=== PATIENT | male | born 1975 | race Caucasian/White ===

== ENCOUNTER 2023-02-23 06:15 | Emergency (ER) | payer SELFPAY ==
[2023-02-23] VITALS (15 sets, daily range): BP systolic 112–175; BP diastolic 67–89; PULSE 97–116; RESP 15–28; TEMP 36.8; O2SAT 92–98; BMI 45.0
--- NOTE | 2023-02-23 06:30 | ED.GENADULT ---
HPI - General Adult <Aleksandar Meng DO - Last Filed: 02/23/23 18:11> General Chief complaint: Shortness of Breath/Dyspnea Stated complaint: sore throat, chest congestion Time Seen by Provider: 02/23/23 06:16 Source: patient and family Mode of arrival: Ambulatory Limitations: no limitations History of Present Illness HPI narrative: Patient is a 47-year-old male. Approximately 1 month ago he spent several days in the hospital with COVID pneumonia. He felt like things were actually improving until sometime within the past 24-48 hours started to have chest congestion and shortness of breath. The stated complaint was stating that he was having a sore throat but he has not having a sore throat. He has no underlying lung condition such as COPD or asthma. He denies chest pain. No fevers. Related Data Previous Rx's Medication Instructions Recorded albuterol sulfate 2.5 mg/3 mL 2.5 mg (3 mL) inhalation Q4-6H PRN 02/23/23 (0.083 %) solution for nebulization shortness of breath or wheezing #75 mL albuterol sulfate 90 mcg/actuation 2 puff inhalation Q4-6H PRN 02/23/23 aerosol inhaler (ProAir HFA) shortness of breath or wheezing #8.5 grams nebulizer accessories #1 ea 02/23/23 nebulizer accessories #1 ea 02/23/23 nebulizer and compressor #1 ea 02/23/23 nebulizer and compressor #1 ea 02/23/23 prednisone 20 mg tablet 40 mg (2 x 20 mg) PO DAILY 5 days 02/23/23 #10 tabs Allergies Allergy/AdvReac Type Severity Reaction Status Date / Time No Known Drug Allergies Allergy Verified 02/23/23 06:41 Review of Systems <DO Vicky Griffin Last Filed: 02/23/23 18:11> Constitutional Constitutional: Reports system reviewed and no additional complaints, except as documented Cardiovascular Cardiovascular: Reports system reviewed and no additional complaints, except as documented Respiratory Respiratory: Reports system reviewed and no additional complaints, except as documented Integumentary/Breasts Skin/Breast: Reports system reviewed and no additional complaints, except as documented Patient History <DO Vicky Griffin Last Filed: 02/23/23 18:11> Social History Smoking Status: Former smoker Exam <Aleksandar Meng DO - Last Filed: 02/23/23 18:11> Initial Vital Signs Initial Vital Signs: Vital Signs Temperature 98.3 F 02/23/23 06:20 Pulse Rate 111 H 02/23/23 06:20 Respiratory Rate 26 H 02/23/23 06:20 Blood Pressure 155/89 H 02/23/23 06:20 Pulse Oximetry 92 02/23/23 06:20 Oxygen Delivery Method Room Air 02/23/23 06:20 Const General: cooperative and comfortable HENMT Head: normal to inspection and normocephalic Resp Effort & Inspection: no cough, not labored, no respiratory distress and tachypneic Auscultation: diminished lung sounds Cardio Rate: regular rate Rhythm: regular rhythm GI Inspection: normal to inspection Skin General: no rashes or lesions noted Neuro General: patient alert, patient awake, patient oriented x3 and moves all extremities Extrem General: capillary refill normal <Leigha Nunez DO - Last Filed: 02/23/23 12:35> Initial Vital Signs Initial Vital Signs: Vital Signs Temperature 98.3 F 02/23/23 06:20 Pulse Rate 111 H 02/23/23 06:20 Respiratory Rate 26 H 02/23/23 06:20 Blood Pressure 155/89 H 02/23/23 06:20 Pulse Oximetry 92 02/23/23 06:20 Oxygen Delivery Method Room Air 02/23/23 06:20 Course <Aleksandar Meng DO - Last Filed: 02/23/23 18:11> Orders Ordered: Discontinued Medications Albuterol (Albuterol 2.5 Mg/3 Ml Neb (Adult)) 5 mg INH NOW ONE Stop: 02/23/23 06:30 Last Admin: 02/23/23 06:35 Dose: 5 mg Documented By: JONATHON Albuterol (Albuterol 2.5 Mg/3 Ml Neb (Adult)) 20 mg INH NOW ONE Stop: 02/23/23 06:49 Last Admin: 02/23/23 07:21 Dose: 20 mg Documented By: MIGUEL ANGEL Albuterol (Albuterol 2.5 Mg/3 Ml Neb (Adult)) 2.5 mg INH NOW ONE Stop: 02/23/23 09:46 Last Admin: 02/23/23 09:48 Dose: 2.5 mg Documented By: RB Sodium Chloride (Normal Saline 0.9%) 1,000 mls @ 1,000 mls/hr IV BOLUS ONE Stop: 02/23/23 09:43 Last Infusion: 02/23/23 09:46 Dose: Infused Documented By: Admin: 02/23/23 08:58 Dose: 1,000 mls/hr Documented By: SPF Methylprednisolone (Methylprednisolone 125 Mg/2 Ml Vial) 125 mg IV NOW ONE Stop: 02/23/23 07:29 Last Admin: 02/23/23 07:55 Dose: 125 mg Documented By: JORGE Vital Signs Vital signs: Vital Signs - 8 hr 02/23/23 06:20 02/23/23 06:26 02/23/23 06:30 Temperature 98.3 F Pulse Rate 111 H 113 H 112 H Respiratory Rate 26 H 26 H Blood Pressure 155/89 H Pulse Oximetry 92 93 95 Oxygen Delivery Method Room Air Room Air Room Air Oxygen Flow Rate Fraction of Inspired Oxygen 02/23/23 06:30 02/23/23 06:35 02/23/23 07:00 Temperature Pulse Rate 97 H 110 H Respiratory Rate 28 H Blood Pressure 175/83 H Pulse Oximetry 98 92 Oxygen Delivery Method Room Air Oxygen Flow Rate 0 Fraction of Inspired Oxygen 21 02/23/23 07:01 02/23/23 07:01 02/23/23 07:25 Temperature Pulse Rate 110 H Respiratory Rate Blood Pressure 153/74 H Pulse Oximetry 92 93 Oxygen Delivery Method Room Air Oxygen Flow Rate Fraction of Inspired Oxygen 02/23/23 07:25 02/23/23 07:30 02/23/23 08:00 Temperature Pulse Rate 112 H 110 H 111 H Respiratory Rate 20 Blood Pressure Pulse Oximetry 94 94 Oxygen Delivery Method Oxygen Flow Rate Fraction of Inspired Oxygen 02/23/23 08:30 02/23/23 08:57 02/23/23 08:57 Temperature Pulse Rate 116 H 114 H Respiratory Rate 20 21 Blood Pressure 112/83 Pulse Oximetry 94 96 Oxygen Delivery Method Oxygen Flow Rate Fraction of Inspired Oxygen 02/23/23 09:00 02/23/23 09:01 02/23/23 09:01 Temperature Pulse Rate 116 H 114 H Respiratory Rate 15 17 Blood Pressure 156/76 H Pulse Oximetry 96 95 Oxygen Delivery Method Oxygen Flow Rate Fraction of Inspired Oxygen 02/23/23 09:16 02/23/23 09:16 02/23/23 09:30 Temperature Pulse Rate 109 H 108 H Respiratory Rate 15 15 Blood Pressure 157/67 H Pulse Oximetry 94 92 Oxygen Delivery Method Oxygen Flow Rate Fraction of Inspired Oxygen 02/23/23 09:30 Temperature Pulse Rate Respiratory Rate Blood Pressure 154/70 H Pulse Oximetry Oxygen Delivery Method Oxygen Flow Rate Fraction of Inspired Oxygen <Leigha Nunez, - Last Filed: 02/23/23 12:35> Orders Ordered: Discontinued Medications Albuterol (Albuterol 2.5 Mg/3 Ml Neb (Adult)) 5 mg INH NOW ONE Stop: 02/23/23 06:30 Last Admin: 02/23/23 06:35 Dose: 5 mg Documented By: JONATHON Albuterol (Albuterol 2.5 Mg/3 Ml Neb (Adult)) 20 mg INH NOW ONE Stop: 02/23/23 06:49 Last Admin: 02/23/23 07:21 Dose: 20 mg Documented By: MIGUEL ANGEL Albuterol (Albuterol 2.5 Mg/3 Ml Neb (Adult)) 2.5 mg INH NOW ONE Stop: 02/23/23 09:46 Last Admin: 02/23/23 09:48 Dose: 2.5 mg Documented By: RB Sodium Chloride (Normal Saline 0.9%) 1,000 mls @ 1,000 mls/hr IV BOLUS ONE Stop: 02/23/23 09:43 Last Infusion: 02/23/23 09:46 Dose: Infused Documented By: Admin: 02/23/23 08:58 Dose: 1,000 mls/hr Documented By: SPF Methylprednisolone (Methylprednisolone 125 Mg/2 Ml Vial) 125 mg IV NOW ONE Stop: 02/23/23 07:29 Last Admin: 02/23/23 07:55 Dose: 125 mg Documented By: SPF Vital Signs Vital signs: Vital Signs - 8 hr 02/23/23 06:20 02/23/23 06:26 02/23/23 06:30 Temperature 98.3 F Pulse Rate 111 H 113 H 112 H Respiratory Rate 26 H 26 H Blood Pressure 155/89 H Pulse Oximetry 92 93 95 Oxygen Delivery Method Room Air Room Air Room Air Oxygen Flow Rate Fraction of Inspired Oxygen 02/23/23 06:30 02/23/23 06:35 02/23/23 07:00 Temperature Pulse Rate 97 H 110 H Respiratory Rate 28 H Blood Pressure 175/83 H Pulse Oximetry 98 92 Oxygen Delivery Method Room Air Oxygen Flow Rate 0 Fraction of Inspired Oxygen 21 02/23/23 07:01 02/23/23 07:01 02/23/23 07:25 Temperature Pulse Rate 110 H Respiratory Rate Blood Pressure 153/74 H Pulse Oximetry 92 93 Oxygen Delivery Method Room Air Oxygen Flow Rate Fraction of Inspired Oxygen 02/23/23 07:25 02/23/23 07:30 02/23/23 08:00 Temperature Pulse Rate 112 H 110 H 111 H Respiratory Rate 20 Blood Pressure Pulse Oximetry 94 94 Oxygen Delivery Method Oxygen Flow Rate Fraction of Inspired Oxygen 02/23/23 08:30 02/23/23 08:57 02/23/23 08:57 Temperature Pulse Rate 116 H 114 H Respiratory Rate 20 21 Blood Pressure 112/83 Pulse Oximetry 94 96 Oxygen Delivery Method Oxygen Flow Rate Fraction of Inspired Oxygen 02/23/23 09:00 02/23/23 09:01 02/23/23 09:01 Temperature Pulse Rate 116 H 114 H Respiratory Rate 15 17 Blood Pressure 156/76 H Pulse Oximetry 96 95 Oxygen Delivery Method Oxygen Flow Rate Fraction of Inspired Oxygen 02/23/23 09:16 02/23/23 09:16 02/23/23 09:30 Temperature Pulse Rate 109 H 108 H Respiratory Rate 15 15 Blood Pressure 157/67 H Pulse Oximetry 94 92 Oxygen Delivery Method Oxygen Flow Rate Fraction of Inspired Oxygen 02/23/23 09:30 Temperature Pulse Rate Respiratory Rate Blood Pressure 154/70 H Pulse Oximetry Oxygen Delivery Method Oxygen Flow Rate Fraction of Inspired Oxygen Medical Decision Making <Aleksandar Meng DO - Last Filed: 02/23/23 18:11> Medical Records Medical records reviewed: Yes I reviewed the patient's medical records. Lab Data 02/23/23 07:55 02/23/23 07:55 Labs: Lab Results 02/23/23 02/23/23 02/23/23 Range/Units 06:30 06:30 06:30 WBC (4.5-11.0) X10^3/uL RBC (4.5-5.9) X10^6/uL Hgb (13.5-17.5) g/dL Hct (41-53) % MCV (80-100) fL MCH (26-34) PG MCHC (30-36) % RDW (11.6-14.8) % Plt Count (150-400) X10^3/uL Neut % (Auto) (50-75) % Lymph % (Auto) (25-40) % [place] % (Auto) (3-14) % Eos % (Auto) (2-4) % Baso % (Auto) (0-2) % Neut # (Auto) (6048-6131) /uL Lymph # (Auto) (4882-8524) /uL [place] # (Auto) (0-900) /uL Eos # (Auto) (0-450) /uL Baso # (Auto) (0-100) /uL PT (9.4-12.5) SECONDS INR (0.9-1.3) D-Dimer (<500) ng/ml Sodium (137-145) mmol/L Potassium (3.4-5.1) mmol/L Chloride (98-107) mmol/L Carbon Dioxide (22-32) mmol/L BUN (9-20) mg/dL Creatinine (0.66-1.25) mg/dL Estimated GFR (>60) mL/min BUN/Creatinine Ratio (6-22) Glucose (70-100) mg/dL Lactate (0.7-2.1) mmol/L Calcium (8.4-10.2) mg/dL Total Bilirubin (0.2-1.3) mg/dL AST (17-59) IU/L ALT (<50) IU/L Alkaline Phosphatase (38-126) U/L Troponin I (0.01-0.034) ng/mL NT-Pro-B Natriuret Pep (<125) pg/mL Total Protein (6.3-8.2) g/dL Albumin (3.5-5.0) g/dL Globulin (1.7-4.1) g/dL Albumin/Globulin Ratio (1.0-2.8) Chlamy pneumoniae PCR Not detected (Not Detect) Adenovirus (PCR) Not detected (Not Detect) B.parapertussis DNA PCR Not detected (Not Detecte) Coronavirus OC43 (PCR) Not detected (Not Detect) Coronavirus HKU1 (PCR) Not detected (Not Detect) Coronavirus 229E (PCR) Not detected (Not Detect) SARS-CoV-2 (PCR) Negative Not detected (Negative) Coronavirus NL63 (PCR) Not detected (Not Detect) Human Metapneumovir PCR Not detected (Not Detect) Influenza A (RT-PCR) Flu a negative (NEGATIVE) Influenza Type A (PCR) Not detected (Not Detect) Influenza B (RT-PCR) Flu b negative (NEGATIVE) Influenza Type B (PCR) Not detected (Not Detect) M. pneumoniae (PCR) Not detected (Not Detect) Parainfluenza 1 (PCR) Not detected (Not Detect) Parainfluenza 2 (PCR) Not detected (Not Detect) Parainfluenza 3 (PCR) Not detected (Not Detect) Parainfluenza 4 (PCR) Not detected (Not Detect) RSV (PCR) Negative Not detected (Negative) Entero/Rhino (PCR) Not detected (Not Detect) 02/23/23 Range/Units 07:55 WBC 8.5 (4.5-11.0) X10^3/uL RBC 4.99 (4.5-5.9) X10^6/uL Hgb 15.3 (13.5-17.5) g/dL Hct 44.4 (41-53) % MCV 89.0 (80-100) fL MCH 30.8 (26-34) PG MCHC 34.6 (30-36) % RDW 12.3 (11.6-14.8) % Plt Count 250 (150-400) X10^3/uL Neut % (Auto) 67.6 (50-75) % Lymph % (Auto) 23.1 L (25-40) % [place] % (Auto) 8.1 (3-14) % Eos % (Auto) 0.6 L (2-4) % Baso % (Auto) 0.6 (0-2) % Neut # (Auto) 5700 (0380-0600) /uL Lymph # (Auto) 2000 (7784-9025) /uL [place] # (Auto) 700 (0-900) /uL Eos # (Auto) 100 (0-450) /uL Baso # (Auto) 0 (0-100) /uL PT 12.9 H (9.4-12.5) SECONDS INR 1.1 (0.9-1.3) D-Dimer 993 H (<500) ng/ml Sodium 136 L (137-145) mmol/L Potassium 4.4 (3.4-5.1) mmol/L Chloride 97 L (98-107) mmol/L Carbon Dioxide 32 (22-32) mmol/L BUN 12 (9-20) mg/dL Creatinine 0.51 L (0.66-1.25) mg/dL Estimated GFR > 60 (>60) mL/min BUN/Creatinine Ratio 23.5 H (6-22) Glucose 225 H (70-100) mg/dL Lactate 1.0 (0.7-2.1) mmol/L Calcium 9.1 (8.4-10.2) mg/dL Total Bilirubin 0.8 (0.2-1.3) mg/dL AST 30 (17-59) IU/L ALT 37 (<50) IU/L Alkaline Phosphatase 138 H (38-126) U/L Troponin I < 0.012 (0.01-0.034) ng/mL NT-Pro-B Natriuret Pep 125 H (<125) pg/mL Total Protein 7.6 (6.3-8.2) g/dL Albumin 3.9 (3.5-5.0) g/dL Globulin 3.7 (1.7-4.1) g/dL Albumin/Globulin Ratio 1.1 (1.0-2.8) Chlamy pneumoniae PCR (Not Detect) Adenovirus (PCR) (Not Detect) B.parapertussis DNA PCR (Not Detecte) Coronavirus OC43 (PCR) (Not Detect) Coronavirus HKU1 (PCR) (Not Detect) Coronavirus 229E (PCR) (Not Detect) SARS-CoV-2 (PCR) (Negative) Coronavirus NL63 (PCR) (Not Detect) Human Metapneumovir PCR (Not Detect) Influenza A (RT-PCR) (NEGATIVE) Influenza Type A (PCR) (Not Detect) Influenza B (RT-PCR) (NEGATIVE) Influenza Type B (PCR) (Not Detect) M. pneumoniae (PCR) (Not Detect) Parainfluenza 1 (PCR) (Not Detect) Parainfluenza 2 (PCR) (Not Detect) Parainfluenza 3 (PCR) (Not Detect) Parainfluenza 4 (PCR) (Not Detect) RSV (PCR) (Negative) Entero/Rhino (PCR) (Not Detect) MDM Narrative Medical decision making narrative: Was able to review the records from his previous outside hospital visit. He was admitted to the hospital for respiratory failure with hypoxia which most likely was related to COVID. He was also found to be hyperglycemic with a glucose greater than 520. Had an echocardiogram during that time which was relatively unremarkable. Had CT scans of his chest that were relatively unremarkable. Patient arrives today with decreased breath sounds bilaterally, tachypnea and tachycardia. He is afebrile. Has diminished breath sounds bilaterally. Tested again for COVID/flu/RSV. Nebulizer treatments ordered to evaluate for improvement. Some improvement after his 1st nebulizer treatment. Now starting to hear some wheezing. Still diminished bilaterally. Will continue with a continuous treatment. Care turned today provider to follow-up and disposition. <Leigha Nunez, DO - Last Filed: 02/23/23 12:35> Lab Data Labs: Lab Results 02/23/23 02/23/23 02/23/23 Range/Units 06:30 06:30 06:30 WBC (4.5-11.0) X10^3/uL RBC (4.5-5.9) X10^6/uL Hgb (13.5-17.5) g/dL Hct (41-53) % MCV (80-100) fL MCH (26-34) PG MCHC (30-36) % RDW (11.6-14.8) % Plt Count (150-400) X10^3/uL Neut % (Auto) (50-75) % Lymph % (Auto) (25-40) % [place] % (Auto) (3-14) % Eos % (Auto) (2-4) % Baso % (Auto) (0-2) % Neut # (Auto) (8739-2948) /uL Lymph # (Auto) (0610-1713) /uL [place] # (Auto) (0-900) /uL Eos # (Auto) (0-450) /uL Baso # (Auto) (0-100) /uL PT (9.4-12.5) SECONDS INR (0.9-1.3) D-Dimer (<500) ng/ml Sodium (137-145) mmol/L Potassium (3.4-5.1) mmol/L Chloride (98-107) mmol/L Carbon Dioxide (22-32) mmol/L BUN (9-20) mg/dL Creatinine (0.66-1.25) mg/dL Estimated GFR (>60) mL/min BUN/Creatinine Ratio (6-22) Glucose (70-100) mg/dL Lactate (0.7-2.1) mmol/L Calcium (8.4-10.2) mg/dL Total Bilirubin (0.2-1.3) mg/dL AST (17-59) IU/L ALT (<50) IU/L Alkaline Phosphatase (38-126) U/L Troponin I (0.01-0.034) ng/mL NT-Pro-B Natriuret Pep (<125) pg/mL Total Protein (6.3-8.2) g/dL Albumin (3.5-5.0) g/dL Globulin (1.7-4.1) g/dL Albumin/Globulin Ratio (1.0-2.8) Chlamy pneumoniae PCR Not detected (Not Detect) Adenovirus (PCR) Not detected (Not Detect) B.parapertussis DNA PCR Not detected (Not Detecte) Coronavirus OC43 (PCR) Not detected (Not Detect) Coronavirus HKU1 (PCR) Not detected (Not Detect) Coronavirus 229E (PCR) Not detected (Not Detect) SARS-CoV-2 (PCR) Negative Not detected (Negative) Coronavirus NL63 (PCR) Not detected (Not Detect) Human Metapneumovir PCR Not detected (Not Detect) Influenza A (RT-PCR) Flu a negative (NEGATIVE) Influenza Type A (PCR) Not detected (Not Detect) Influenza B (RT-PCR) Flu b negative (NEGATIVE) Influenza Type B (PCR) Not detected (Not Detect) M. pneumoniae (PCR) Not detected (Not Detect) Parainfluenza 1 (PCR) Not detected (Not Detect) Parainfluenza 2 (PCR) Not detected (Not Detect) Parainfluenza 3 (PCR) Not detected (Not Detect) Parainfluenza 4 (PCR) Not detected (Not Detect) RSV (PCR) Negative Not detected (Negative) Entero/Rhino (PCR) Not detected (Not Detect) 02/23/23 Range/Units 07:55 WBC 8.5 (4.5-11.0) X10^3/uL RBC 4.99 (4.5-5.9) X10^6/uL Hgb 15.3 (13.5-17.5) g/dL Hct 44.4 (41-53) % MCV 89.0 (80-100) fL MCH 30.8 (26-34) PG MCHC 34.6 (30-36) % RDW 12.3 (11.6-14.8) % Plt Count 250 (150-400) X10^3/uL Neut % (Auto) 67.6 (50-75) % Lymph % (Auto) 23.1 L (25-40) % [place] % (Auto) 8.1 (3-14) % Eos % (Auto) 0.6 L (2-4) % Baso % (Auto) 0.6 (0-2) % Neut # (Auto) 5700 (5958-6770) /uL Lymph # (Auto) 2000 (1796-1209) /uL [place] # (Auto) 700 (0-900) /uL Eos # (Auto) 100 (0-450) /uL Baso # (Auto) 0 (0-100) /uL PT 12.9 H (9.4-12.5) SECONDS INR 1.1 (0.9-1.3) D-Dimer 993 H (<500) ng/ml Sodium 136 L (137-145) mmol/L Potassium 4.4 (3.4-5.1) mmol/L Chloride 97 L (98-107) mmol/L Carbon Dioxide 32 (22-32) mmol/L BUN 12 (9-20) mg/dL Creatinine 0.51 L (0.66-1.25) mg/dL Estimated GFR > 60 (>60) mL/min BUN/Creatinine Ratio 23.5 H (6-22) Glucose 225 H (70-100) mg/dL Lactate 1.0 (0.7-2.1) mmol/L Calcium 9.1 (8.4-10.2) mg/dL Total Bilirubin 0.8 (0.2-1.3) mg/dL AST 30 (17-59) IU/L ALT 37 (<50) IU/L Alkaline Phosphatase 138 H (38-126) U/L Troponin I < 0.012 (0.01-0.034) ng/mL NT-Pro-B Natriuret Pep 125 H (<125) pg/mL Total Protein 7.6 (6.3-8.2) g/dL Albumin 3.9 (3.5-5.0) g/dL Globulin 3.7 (1.7-4.1) g/dL Albumin/Globulin Ratio 1.1 (1.0-2.8) Chlamy pneumoniae PCR (Not Detect) Adenovirus (PCR) (Not Detect) B.parapertussis DNA PCR (Not Detecte) Coronavirus OC43 (PCR) (Not Detect) Coronavirus HKU1 (PCR) (Not Detect) Coronavirus 229E (PCR) (Not Detect) SARS-CoV-2 (PCR) (Negative) Coronavirus NL63 (PCR) (Not Detect) Human Metapneumovir PCR (Not Detect) Influenza A (RT-PCR) (NEGATIVE) Influenza Type A (PCR) (Not Detect) Influenza B (RT-PCR) (NEGATIVE) Influenza Type B (PCR) (Not Detect) M. pneumoniae (PCR) (Not Detect) Parainfluenza 1 (PCR) (Not Detect) Parainfluenza 2 (PCR) (Not Detect) Parainfluenza 3 (PCR) (Not Detect) Parainfluenza 4 (PCR) (Not Detect) RSV (PCR) (Negative) Entero/Rhino (PCR) (Not Detect) Imaging Data Chest x-ray: Radiologist's Impression: Close Chest X-Ray (Signed) Sonia Sotelo - 02/23/[address] [address] XRay Report Signed Patient: Shayne Corona MR#: [id number] : 1975 Acct:[id number] Age/Sex: 47 / M Date of Service: 02/23/23 Loc: ED Accession Number: [id number] Procedure: XR chest 1V Ordering Provider: Aleksandar Meng D.O. PROCEDURE: XR CHEST 1V INDICATIONS: SOB TECHNIQUE: One view of the chest was acquired. COMPARISON: None. FINDINGS: Surgical changes and devices: None. Lungs and pleura: Slight appearance of bibasilar coarsening more prominent on the right. Mediastinum: Mediastinal contours appear normal. Heart size is normal. Bones and chest wall: No suspicious bony lesions. Overlying soft tissues appear unremarkable. IMPRESSION: Slight appearance of bibasilar coarsening. This could be bilingual sales representative of edema, atelectasis or potentially developing pneumonia. Dictated by: Sonia Sotelo M.D. on 02/23/2023 at 8:15 Approved by: Sonia Sotelo M.D. on 02/23/2023 at 8:15 CT scan - chest: Radiologist's Impression: Close Chest CTA (Signed) Jennifer Velasquez - 02/23/23 Chest X-Ray (Signed) Sonia Sotelo - 02/23/23 Launch?[address] [address] [address] Scan Report Signed Patient: Shayne Corona MR#: [id number] : 1975 Acct:[id number] Age/Sex: 47 / M Date of Service: 02/23/23 Loc: ED Accession Number: [id number] Procedure: CT angio chest PE protocol Ordering Provider: Leigha Nunez D.O. PROCEDURE: CT ANGIO CHEST PE PROTOCOL INDICATIONS: shortness of breath, prior covid 1 month ago w/ hypoxia TECHNIQUE: After the administration of intravenous contrast, 2 mm thick sections acquired from the pulmonary apices to the posterior costophrenic angles. 3-dimensional maximum intensity projection (MIP) coronal and sagittal reformats were then acquired through the thorax. For radiation dose reduction, the following was used: automated exposure control, adjustment of mA and/or kV according to patient size. COMPARISON: [facility], CT, CT ANGIO CHEST PE, 01/24/2023, 1:47. FINDINGS: Image quality: Diagnostic. Pulmonary arteries: Pulmonary arteries are normal in size, and demonstrate no intraluminal filling defects to suggest central pulmonary embolism. Lower Neck: No enlarged lymph nodes. Thyroid: No thyroid nodules which require sonographic follow up, per consensus guidelines. Axillae: No enlarged lymph nodes. Chest Wall: Unremarkable. Bones: Multiple chronic bilateral anterior rib fractures. Spine degenerative disc disease and facet arthropathy. Lungs and Pleura: No pneumothorax or pleural effusions. Small patchy alveolar opacities in the right lung base which could represent residual pneumonia. Heart: Heart size is normal. No pericardial effusion. Thoracic Vessels: No aortic aneurysm. Mediastinum and Missy: No enlarged lymph nodes. 1.4 centimeter soft tissue density nodule in the subglottic trachea. Esophagus: No wall thickening. No hiatal hernia. Upper Abdomen: Visualized upper abdomen solid organs and bowel loops appear normal. IMPRESSION: No pulmonary embolus or aortic dissection. Small patchy alveolar opacities in the right lower lobe concerning for residual pneumonia. 1.4 centimeter nodule in the subglottic trachea. Finding could represent polyp or malignancy. Recommend nonemergent ENT consultation. Dictated by: Jennifer Velasquez MD, PhD on 02/23/2023 at 9:13 Approved by: Jennifer Velasquez MD, PhD on 02/23/2023 at 9:22 ECG Data Attestation: I personally reviewed and interpreted this ECG as follows: Prior ECG tracings: not available for review Interpretation: Sinus tachycardia occasional PVC rate of 114 LA 126 QRS 86 QTC [address] No acute ST changes appreciated. S1 but no Q [address] segment 3. No other dynamic changes appreciated. No other ST elevation depression noted. No prior available in cardioserver. MDM Narrative Medical decision making narrative: Was able to review the records from his previous outside hospital visit. He was admitted to the hospital for respiratory failure with hypoxia which most likely was related to COVID. He was also found to be hyperglycemic with a glucose greater than 520. Had an echocardiogram during that time which was relatively unremarkable. Had CT scans of his chest that were relatively unremarkable. Patient arrives today with decreased breath sounds bilaterally, tachypnea and tachycardia. He is afebrile. Has diminished breath sounds bilaterally. Tested again for COVID/flu/RSV. Nebulizer treatments ordered to evaluate for improvement. Some improvement after his 1st nebulizer treatment. Now starting to hear some wheezing. Still diminished bilaterally. Will continue with a continuous treatment. Care turned today provider to follow-up and disposition. 02/23/23 Mank: Patient signed out to myself by Dr. Meng. Patient seen and evaluated by myself. Patient did have hospitalization for hypoxic respiratory failure related to COVID found to be hyperglycemic and started on medications for diabetes. No other daily medications he did stop smoking tobacco a month ago as well as drinking any alcohol at that time. Patient notes he had 1 nebulizer here which he found helpful. He does have laryngitis or hoarseness of his voice which is quite decreased which started with his symptoms most recently. Patient states he had improved somewhat since his hospitalization. He is quite diminished bilaterally. Plan to continue with continuous treatment we will give 1 dose of Solu-Medrol 125 mg plan for labs including CBC, CMP BNP, troponin. Patient had chest x-ray ordered preliminary does not show any clear changes was noted had multifocal lobar pneumonia on CT angio without pulmonary emboli during his hospitalization at [facility]. Patient states he is never required nebulizers in the past. No known drug allergies denies regular surgeries. States was not seeing a regular primary care physician for the past 20 years. He is slightly tachycardic, slightly tachypneic but 92-98% room air, no hypotension afebrile. Labs so CBC with low lymphocytes but otherwise normal white count, hemoglobin and platelets. D-dimer is elevated at [address] angio with recent hospitalization. Patient's electrolytes overall appropriate chloride 97 glucose 2-5, normal LFTs negative lactate, alk-phos of 138, negative troponin BNP of 125. COVID/influenza/RSV is negative. Full respiratory panel was sent and is negative. Slight appearance of bibasilar coarsening, this could represent edema, atelectasis or potential developing pneumonia. Patient had CT of his chest in the last month which showed multilobar pneumonia so this could be potentially resolving. Recheck after 20 mg of albuterol and Solu-Medrol: patient states he feels improved. Still diminished, slightly tachy but no hypoxia. Discussed with patient and family we will get CT angio to evaluate. Patient is still slightly tachycardic but did have 20 mg of albuterol. We will give a L of fluids. CT angio is negative for pulmonary embolus or aortic dissection small patchy alveolar opacities right lower lobe concerning for residual pneumonia, suspect patient likely does have some residual pneumonia had pretty significant changes on the report from his CT on [facility] this is likely resolving. 1.4 cm nodule subglottic trachea could represent polyp or malignancy recommend nonemergent ENT consultation. Spoke with patient he continues to feel improved. He and I discussed he has had a change in his voice for several months was sort of a slow progression. Reviewed his findings from his CT angio, his airway does not appear to be obstructing he is able to lay back in the bed without any issue but felt to be very appropriate to follow-up with ENT in the short term for direct visualization he does have a history of smoking regularly and with a slow change likely has a mass growing. Discussed with patient and at bedside. Spoke with Dr. Lauren from ENT Patient ambulated here in the department, O2 sat was in the 90s. Patient was slightly tachycardic but tolerated well. No complaints. He feels comfortable returning home. Discussed importance following up with ENT in the short term. And that he needs to expect a phone call today to be seen. Discharge Plan Departure Patient Disposition: Home Clinical Impression: Tracheal nodule Activity Restrictions/Additional Instructions: Your workup today shows some patchy changes in the right lower lobe you likely have some resolving pneumonia but compared to the report from [facility] appears to be improving. I would recommend continued steroids and albuterol PRN to see if this continues to be helpful. You do have bilateral anterior rib fractures that appear old. It is noted that you have a 1.4 cm nodule in the subglottic trachea, this could be a polyp versus malignancy needs follow up with ENT with direct visualization. This is likely source with a change in your voice. Contact information is below. I spoke with Dr. Chicas, ENT who will have the office call you today to be seen shortly. It is important that you follow up to have this evaluated, it is likely part of your breathing issues. Prescriptions were sent to [facility] in [facility]. Please return for new or worsening symptoms, chest pain, increasing shortness of breath, new stridor or high-pitched wheezing, difficulty lying backwards or flat or other new or concerning changes. Prescriptions: New albuterol sulfate [ProAir HFA] 90 mcg/actuation HFA aerosol inhaler 2 puff inhalation Q4-6H PRN (Reason: shortness of breath or wheezing) Qty: 8.5 0RF (DME) nebulizer and compressor Device See Rx Instructions .Route Qty: 1 0RF Rx Instructions: As directed (DME) nebulizer accessories Kit See Rx Instructions .Route Qty: 1 0RF Rx Instructions: As directed prednisone 20 mg tablet 40 mg PO DAILY 5 Days Qty: 10 0RF (DME) nebulizer and compressor Device See Rx Instructions .Route Qty: 1 0RF Rx Instructions: As directed (DME) nebulizer accessories Kit See Rx Instructions .Route Qty: 1 0RF Rx Instructions: As directed albuterol sulfate 2.5 mg /3 mL (0.083 %) solution for nebulization 2.5 mg inhalation Q4-6H PRN (Reason: shortness of breath or wheezing) Qty: 75 0RF Referrals: Иван Lauren MD [Physician] - Lino Chicas MD [Physician] - Stand Alone Forms: Patient Portal/API
[2023-02-23] MEDS: ALBUTEROL 2.5 MG/3 ML NEB (ADULT) 5 MG INH (06:35)
[2023-02-23 07:16] LABS: Influenza A - CEPHEID Flu A NEGATIVE (NEGATIVE); Influenza B - CEPHEID Flu B NEGATIVE (NEGATIVE); Respiratory Syncytial Virus Negative (Negative)
[2023-02-23 07:19] LABS: COVID-19 CEPHEID 4-PLEX PCR Negative (Negative)
[2023-02-23] MEDS: ALBUTEROL 2.5 MG/3 ML NEB (ADULT) 20 MG INH (07:21)
[2023-02-23] MEDS: methylPREDNISolone 125 MG/2 ML VIAL IV (07:55)
[2023-02-23 08:02] LABS: Add Manual Diff / Slide Review NO; Basophils Absolute Auto 0 /uL (0-100); Basophils Percent Auto 0.6 % (0-2); Eosinophils Absolute Auto 100 /uL (0-450); Eosinophils Percent Auto 0.6 % (2-4); Hematocrit 44.4 % (41-53); Hemoglobin 15.3 g/dL (13.5-17.5); Lymphocytes Absolute Auto 2000 /uL (1100-4500); Lymphocytes Percent Auto 23.1 % (25-40); Mean Corpuscular HGB Conc 34.6 % (30-36); Mean Corpuscular Hemoglobin 30.8 PG (26-34); Monocytes Absolute Auto 700 /uL (0-900); Monocytes Percent Auto 8.1 % (3-14); Neutrophils Absolute Auto 5700 /uL (1500-7000); Neutrophils Percent Auto 67.6 % (50-75); Platelet Count 250 X10^3/uL (150-400); Red Blood Cell Count 4.99 X10^6/uL (4.5-5.9); Red Cell Distribution Width 12.3 % (11.6-14.8); White Blood Cell Count 8.5 X10^3/uL (4.5-11.0)
[2023-02-23 08:09] LABS: INR 1.1 (0.9-1.3); Prothrombin Time 12.9 SECONDS (9.4-12.5)
[2023-02-23 08:14] LABS: Alanine Aminotransferase 37 IU/L (<50); Albumin 3.9 g/dL (3.5-5.0); Albumin Globulin Ratio 1.1 (1.0-2.8); Alkaline Phosphatase 138 U/L (38-126); Aspartate Aminotransferase 30 IU/L (17-59); BUN Creatinine Ratio 23.5 (6-22); Bilirubin Total 0.8 mg/dL (0.2-1.3); Blood Urea Nitrogen 12 mg/dL (9-20); Calcium 9.1 mg/dL (8.4-10.2); Carbon Dioxide 32 mmol/L (22-32); Chloride 97 mmol/L (98-107); Estimated Glomerular Filt Rate > 60 mL/min (>60); Globulin 3.7 g/dL (1.7-4.1); Glucose 225 mg/dL (70-100); HEMOLYSIS < 15 (0-50); Potassium 4.4 mmol/L (3.4-5.1); Sodium 136 mmol/L (137-145); Total Protein 7.6 g/dL (6.3-8.2)
[2023-02-23 08:25] LABS: NT-proBNP (BNP-Adult 18+) 125 pg/mL (<125); Troponin I < 0.012 ng/mL (0.01-0.034)
[2023-02-23 08:29] LABS: D Dimer 993 ng/ml (<500)
[2023-02-23 08:36] LABS: Adenovirus Not Detected (Not Detect); B. parapertussis Not Detected (Not Detecte); Bordetella pertussis Not Detected (Not Detect); Chlamydophila pneumoniae Not Detected (Not Detect); Coronavirus 229E Not Detected (Not Detect); Coronavirus HKU1 Not Detected (Not Detect); Coronavirus NL 63 Not Detected (Not Detect); Coronavirus OC43 Not Detected (Not Detect); Human Metapneumovirus Not Detected (Not Detect); Human Rhinovirus/Enterovirus Not Detected (Not Detect); Influenza A Not Detected (Not Detect); Influenza B Not Detected (Not Detect); Mycoplasma pneumoniae Not Detected (Not Detect); Parainfluenza Virus 1 Not Detected (Not Detect); Parainfluenza Virus 2 Not Detected (Not Detect); Parainfluenza Virus 3 Not Detected (Not Detect); Parainfluenza Virus 4 Not Detected (Not Detect); Respiratory Syncytial Virus Not Detected (Not Detect); SARS- CoV-2 Not Detected (Not Detecte)
--- NOTE | 2023-02-23 08:38 | DI.CT.S_ITS ---
PROCEDURE: CT ANGIO CHEST PE PROTOCOL INDICATIONS: shortness of breath, prior covid 1 month ago w/ hypoxia TECHNIQUE: After the administration of intravenous contrast, 2 mm thick sections acquired from the pulmonary apices to the posterior costophrenic angles. 3-dimensional maximum intensity projection (MIP) coronal and sagittal reformats were then acquired through the thorax. For radiation dose reduction, the following was used: automated exposure control, adjustment of mA and/or kV according to patient size. COMPARISON: [facility], CT, CT ANGIO CHEST PE, 01/24/2023, 1:47. FINDINGS: Image quality: Diagnostic. Pulmonary arteries: Pulmonary arteries are normal in size, and demonstrate no intraluminal filling defects to suggest central pulmonary embolism. Lower Neck: No enlarged lymph nodes. Thyroid: No thyroid nodules which require sonographic follow up, per consensus guidelines. Axillae: No enlarged lymph nodes. Chest Wall: Unremarkable. Bones: Multiple chronic bilateral anterior rib fractures. Spine degenerative disc disease and facet arthropathy. Lungs and Pleura: No pneumothorax or pleural effusions. Small patchy alveolar opacities in the right lung base which could represent residual pneumonia. Heart: Heart size is normal. No pericardial effusion. Thoracic Vessels: No aortic aneurysm. Mediastinum and Missy: No enlarged lymph nodes. 1.4 centimeter soft tissue density nodule in the subglottic trachea. Esophagus: No wall thickening. No hiatal hernia. Upper Abdomen: Visualized upper abdomen solid organs and bowel loops appear normal. IMPRESSION: No pulmonary embolus or aortic dissection. Small patchy alveolar opacities in the right lower lobe concerning for residual pneumonia. 1.4 centimeter nodule in the subglottic trachea. Finding could represent polyp or malignancy. Recommend nonemergent ENT consultation. Dictated by: Jennifer Velasquez MD, PhD on 02/23/2023 at 9:13 Approved by: Jennifer Velasquez MD, PhD on 02/23/2023 at 9:22
[2023-02-23] MEDS: SODIUM CHLORIDE 0.9% 1,000 ML 1000 ML IV (08:58)
--- NOTE | 2023-02-23 09:11 | RT ---
Pt tnoe guaman well, on room air with no distress noted
[2023-02-23] MEDS: ALBUTEROL 2.5 MG/3 ML NEB (ADULT) INH (09:48)
== END 2023-02-23 09:56 | disposition home or self-care (01) ==
PROVIDERS: Emergency Medicine; Emergency Provider Emergency Medicine
DX: J39.8 Other specified diseases of upper respiratory tract (principal); R06.02 Shortness of breath; Z86.16 Personal history of COVID-19; Z20.822 Contact with and (suspected) exposure to COVID-19
CPT/HCPCS: 0241U; 36415; 71045; 71275; 80053; 83605; 83880; 84484; 85025; 85379; 85610; 87633; 93005; 93010; 96361; 96374; 99284; J2930; J7613